=== PATIENT | female | born 1960 | race Caucasian/White ===

== ENCOUNTER → 2017-08-15 23:16 | Outpatient (CLI) | payer MEDICARE, MEDICAID ==
[2014-10-29 07:22] VITALS: BMI 36.7
[~2017-08-15 23:16] MED LIST: BIOTIN5 MG PO; CALAN SR240 MG; CALAN SR240 MG PO; CALCIUM 600+D T1 TA1 PO; CELEXA10 MG PO; FISH OIL 1,2001 CAP PO; HYDROCODONE-APA1 TAB PO; TAMOXIFEN CITRA20 MG PO; TYLENOL ARTHRITIS PO; TYLENOL PM1 TAB PO
== END | disposition home or self-care (01) ==
LOC: D.MAMMO 07-27 11:30
DX: Z85.3 Personal history of malignant neoplasm of breast (principal); Z12.31 Encounter for screening mammogram for malignant neoplasm of breast

== ENCOUNTER 2019-02-20 12:12 | Outpatient (CLI) | payer MEDICARE, BC ==
[2014-10-29 07:22] VITALS: BMI 36.7
== END 2019-02-20 23:59 | disposition home or self-care (01) ==
LOC: D.MAMMO 12:12
PROVIDERS: ATTEND Family Medicine
DX: C50.919 Malignant neoplasm of unspecified site of unspecified female breast (principal)

== ENCOUNTER 2019-07-31 10:35 | Day surgery (SDC) | payer MEDICARE, BC ==
[2019-07-29 13:11] LABS: BASOPHILS 0.2 % (0-2); EOSINOPHILS 6.1 % (0-7); HEMATOCRIT 43.1 % (36.0-48.0); HEMOGLOBIN 14.3 g/dL (12-16); IMMATURE GRANULOCYTES 0.3 % (0-5); LYMPHOCYTES 23.7 % (15-50); MCH 33.4 pg (26.0-34.0); MCHC 33.2 g/dL (31.0-37.0); MCV 100.7 fL (80.0-100.0); MEAN PLATELET VOLUME 9.9 fL (7.4-10.4); MONOCYTES 7.4 % (2-11); NEUTROPHILS 62.3 % (40-80); PLATELET COUNT 220 10x3/uL (130-400); RBC 4.28 10x6/uL (4.00-5.40); RDW 13.3 % (11.5-14.5); WBC 9.9 10x3/uL (4.8-10.8)
[2019-07-29 13:18] LABS: CALC OSMOLALITY 281 mosm/kg (275-300); CALCIUM 9.9 mg/dL (8.5-10.1); CARBON DIOXIDE 25.1 mmol/L (21.0-32.0); CHLORIDE - SERUM 103 mmol/L (98-107); CREATININE - SERUM 0.8 mg/dL (0.6-1.3); GLUCOSE 117 mg/dL (74-106); POTASSIUM - SERUM 4.6 mmol/L (3.5-5.1); SODIUM 140 mmol/L (136-145); UREA NITROGEN 17 mg/dL (7-18); eGFR NON AFRICAN AMERICAN 78 mL/min (90-120)
[2019-07-29 13:34] LABS: APTT 24.3 SECONDS (22.8-39.4)
[2019-07-29 13:35] LABS: INR 0.95 (0.85-1.17); PROTIME 12.7 SECONDS (11.6-15.0)
[~2019-07-31] VITALS: Ht 167.6 cm; Wt 102.1 kg
[~2019-07-31 10:35] MED LIST changes: -BIOTIN5 MG PO; +CALCIUM 600 MG; -CALCIUM 600+D T1 TA1 PO; +CELEXA20 MG PO; -FISH OIL 1,2001 CAP PO; +FOLIC ACID1 MG PO; +Fish Oil 1; +GLUCOPHAGE1000 MG PO; +MERIBIN5 MG PO; +METHOTREXATE2.5 MG PO; +NEURONTIN600 MG PO; +ORENCIA250 MG/10 IV; +TART CHERRY EXTRACT PO; +VITAMIN B-12500 MCG PO; +ZYLOPRIM100 MG PO; +[UNRECOGNIZED DRUG - OTHER]
[2019-07-31 11:25] VITALS: BP 152/81; Ht 167.6 cm; Wt 102.1 kg
[2019-07-31] MEDS ORDERED: HYDROCODON-ACE1 EA10 PO (13:26)
--- NOTE | 2019-07-31 15:02 | NUR ---
1403-REC'D FROM RR. AWAKE AND ALERT.VSS. PAIN 09/04. DRESSING TO RIGHT FOOT CDI. CAP REFILL WNL. SURGICAL BOOT IN PLACE,ICE TO FOOT. REVIEWED DISCHARGE CRITERIA. CL IN EASY REACH. MOTHER AT BEDSIDE. ICE CLEMENTINA DIET COLA AT BEDSIDE. TOLERATED ICE CHIPS IN RR.
--- NOTE | 2019-07-31 15:04 | NUR ---
1430-FULL LIQUID TRAY TO ROOM. PAIN 09/04.VSS. NO DISTRESS. IV PATENT AT [facility] TO LEFT WRIST. CL IN EASY REACH. MOTHER AT BEDSIDE
--- NOTE | 2019-07-31 15:05 | NUR ---
1450-TOLERATED TRAY. REMOVED IV WITH CATH INTACT, DISPOSED INTO SHARPS,COVERED SITE WITH GUAZE,SECURED WITH MEDIPORE TAPE. DRESSING TO FOOT CDI,SURGICAL SHOE CONTINUE TO BE IN PLACE,ELEVATED AND ICE TO TOP OF FOOT. VSS. PAIN TOLERABLE 08/04.
--- NOTE | 2019-07-31 15:35 | NUR ---
1510-REVIEWED POST OPERATIVE INSTRUCTIONS AND FOLLOW UP APPOINTMENT. VERBALIZED UNDERSTANDING.
--- NOTE | 2019-07-31 15:35 | NUR ---
1515-ESCORTED OUT VIA W/C WITH MOTHER AWAITING TO DRIVE HOME
--- NOTE | 2019-08-04 08:42 | OP ---
PATIENT NAME: TREVOR MCCARTHY MEDICAL RECORD: [id number] :62 LOCATION:[facility] ADMISSION DATE: SURGEON: PERFECTO JANE MD DATE OF OPERATION: 07/31/2019 PREOPERATIVE DIAGNOSIS: Osteomyelitis of the right third toe. POSTOPERATIVE DIAGNOSIS: Osteomyelitis of the right third toe. PROCEDURE: Amputation of the right third toe at the MTP joint. SURGEON: Perfecto Jane MD ANESTHESIA: General. INTRAOPERATIVE COMPLICATIONS: None. SUMMARY OF PATHOLOGIC FINDINGS: Essentially none expected. Upon incising the toe, the phalanx was infected and required rongeur manipulation back to just the most proximal aspects of the proximal phalanx of the MTP joint. The flexor component was retained and the rest was removed. INDICATIONS: This is a 51-year-old female, who basically filed her toenails late last year and subsequently wound up with osteomyelitis of the distal phalanx of the right third toe. Because of this, she was not able to take the medicines that keep her psoriasis in check and has now decided that she would like to have this removed, which I think is reasonable given the radiographic findings of extreme osteomyelitis of the distal phalanx of the right third toe. OPERATIVE SUMMARY IN DETAIL: After obtaining the appropriate preoperative orthopedic surgery consent as well as anesthetic consultation, evaluation and clearance, the patient was brought to the operating room and placed on the operating table in supine position. After adequate general laryngeal mask was administered, tourniquet was placed about the proximal aspect of the patient's right lower extremity. Right lower extremity was then prepped and draped in routine sterile fashion. The leg was elevated and exsanguinated, tourniquet inflated to 350 mmHg. At this point, the appropriate timeout was taken and agreed upon by all given the patient's unique identifiers. A fishmouth type incision was planned as it was hopeful that the proximal phalanx of the third toe would be in its entirety noninfected, however, upon dissection, it did appear that the joint was infected. Therefore, a substantial amount of bone was taken down until the bone was no longer worrisome for osteomyelitis. Small amount of the proximal phalanx of the third toe remained with its flexor insertion. This was rongeured off completely smooth. Copious irrigation was then followed by closure with 4-0 Prolene. Sterile dressings were applied. Tourniquet was deflated. The patient was awakened and taken to the recovery room in stable condition. All final needle and sponge counts were correct. TRANSINT:[id number] Voice Confirmation ID: [id number] DOCUMENT ID: [id number] OPERATIVE REPORT [id number] TREVOR MCCARTHY MD, PERFECTO BYRD at 0842 CC: [id number] DICTATION DATE: 08/01/19928 REFERENCE LIBRARY ASSISTANT: 08/01/19 1135 [facility] 07/31/[address] [id number]
== END 2019-07-31 15:15 | disposition home or self-care (01) ==
LOC: D.OPS 10:35 → D.PAN 12:30 → D.OPS 12:30 → D.PAN 16:30
PROVIDERS: Anesthesiology; ATTEND Orthopaedic Surgery
DX: M86.179 Other acute osteomyelitis, unspecified ankle and foot (principal)

== ENCOUNTER 2020-02-23 10:00 | Outpatient (CLI) | payer MEDICARE, BC ==
[2019-07-31 11:25] VITALS: BMI 36.4
[~2020-02-23 10:00] MED LIST changes: +HYDROCODON-ACE1 EA10 PO
== END 2020-02-23 11:00 | disposition home or self-care (01) ==
LOC: D.MAMMO 10:00
PROVIDERS: ATTEND Family Medicine
DX: C50.919 Malignant neoplasm of unspecified site of unspecified female breast (principal); Z85.3 Personal history of malignant neoplasm of breast